=== PATIENT | female | born 2000 | race Hispanic/Latino ===

== ENCOUNTER 2019-05-08 19:48 | Emergency (ER) | payer OTHER ==
--- OUTSIDE RECORDS SUMMARY | 2019-05-08 19:50 | XMS REPORT ---
:2000 [facility] [address] [place] [address] Care Team Providers Name Role Phone Unavailable Unavailable Unavailable Problems This patient has no known problems. Allergies, Adverse Reactions, Alerts This patient has no known allergies or adverse reactions. Medications This patient has no known medications.
--- NOTE | 2019-05-08 21:45 | RAD REPORT ---
EXAM DESCRIPTION: US - OB Limited - 05/08/2019 9:39 pm CLINICAL HISTORY: Abdominal distention;Abd cramping, Early . COMPARISON: No comparisons FINDINGS: A single gestational sac is seen within the uterus. The shape of the sac is within normal limits for gestational age. Within the sac is a single pole with crown-rump length of 7.1 cm, c orrelating to estimated gestational age of 13 weeks 2 days. Estimated date of delivery is 11/11/2019. Heart rate is 157 BPM.. The placenta is not yet developed / visualized due to early gestational age. The maternal adnexa and ovaries are within normal limits. Normal Doppler blood flow was demonstrated to both ovaries. IMPRESSION: Single live early intrauterine gestation with estimated gestational age of 13 weeks 2 da ys, SONU 11/11/2019. No unusual or unexpected finding.
--- NOTE | 2019-05-08 21:45 | RAD REPORT ---
EXAM DESCRIPTION: US - Abdomen Exam Limited - 05/08/2019 9:39 pm CLINICAL HISTORY: ABD CRAMPING, COMPARISON: <Comparisons> FINDINGS: The gallbladder demonstrates no gallstones. No pericholecystic fluid or gallbladder wall t hickening. The common bile duct is normal measuring 3 mm. The liver demonstrates no findings of intrahepatic biliary dilatation. IMPRESSION: Unremarkable examination.
[2019-05-08] MEDS ORDERED: NA CHLORIDE 0.9% 2,000 ML ONE (22:09)
[2019-05-08] MEDS ORDERED: ONDANSETRON 4 MG/2 ML VIAL ONE (22:09)
[2019-05-08 22:27] LABS: Absolute Lymphocytes (CBC) 1.9 K/uL (0.7-4.9); Basophils % 0.4 % (0-1.3); Eosinophils % 0.2 % (0-4.4); Hematocrit 40.3 % (36.0-45.0); Lymphocytes % 21.9 % (15.3-44.8); Monocytes % 6.4 % (3.3-12.3); RBC Red Blood Cell Count 4.85 M/uL (3.86-4.86)
[2019-05-08 22:46] LABS: ALT/SGPT 23 U/L (12-78); AST/SGOT 16 U/L (15-37); Albumin 3.5 g/dL (3.4-5.0); Alkaline Phosphatase 68 U/L (45-117); BUN Blood Urea Nitrogen 4 mg/dL (7-18); Bicarbonate 24 mmol/L (21-32); Bilirubin Direct 0.1 mg/dL (0-0.2); Bilirubin Total 0.5 mg/dL (0.2-1.0); Glucose Level 76 mg/dL (74-106); HCG, Quantitative 93768 mIU/mL (1-3); Lipase 73 U/L (73-393); Potassium 3.8 mmol/L (3.5-5.1); Protein, Total 7.8 g/dL (6.4-8.2); Sodium Level 137 mmol/L (136-145)
--- NOTE | 2019-05-08 23:01 | ER ---
Nurse's Notes [facility] Name: Lico Driver Age: 18 yrs Sex: Female : 2000 Arrival Date: 05/08/2019 Time: 19:51 Bed 23 Private MD: Diagnosis: Vomiting;Abdominal tenderness;Urinary tract infection, site not specified Presentation: 05/08 20:22 Presenting complaint: Patient states: "I am 14 weeks and I have been vomiting jd3 a lot and pain.". Transition of care: patient was not received from another setting of care. Onset of symptoms was April 28, 2019. Risk Assessment: Do you want to hurt yourself or someone else? Patient reports no desire to harm self or others. Initial Sepsis Screen: Does the patient meet any 2 criteria? HR > 90 bpm. No. Patient's initial sepsis screen is negative. Does the patient have a suspected source of infection? No. Patient's initial sepsis screen is negative. Care prior to arrival: None. 20:22 Method Of Arrival: Ambulatory jd3 20:22 Acuity: DAINA 3 jd3 [employer]: 20:24 LMP N/A - currently . jd3 Historical: - Allergies: 20:24 No Known Allergies; jd3 - Home Meds: 20:24 Promethazine Oral [Active]; Vitamin Oral [Active]; jd3 - PMHx: 20:24 None; jd3 - PSHx: 20:24 None; jd3 - Immunization history:: Adult Immunizations up to date. - Social history:: Smoking status: Patient/guardian denies using tobacco. - Ebola Screening: : Patient negative for fever greater than or equal to 101.5 degrees Fahrenheit, and additional compatible Ebola Virus Disease symptoms. - Family history:: not pertinent. Screenin:01 Abuse screen: Denies threats or abuse. Denies injuries from another. Nutritional aj1 screening: No deficits noted. Tuberculosis screening: No symptoms or risk factors identified. 22:15 Fall Risk None identified. lp1 Assessment: 21:01 General: Appears in no apparent distress. uncomfortable, Behavior is calm, cooperative, aj1 appropriate for age. Pain: Complains of pain in suprapubic area, right inguinal area and left inguinal area. Neuro: Level of Consciousness is awake, alert, obeys commands, Oriented to person, place, time, situation. Cardiovascular: Patient's skin is warm and dry. Respiratory: Airway is patent Respiratory effort is even, unlabored, Respiratory pattern is regular, symmetrical. GI: Abdomen is non-distended, Reports nausea, vomiting, Patient currently denies diarrhea. : Denies discharge, vaginal bleeding. EENT: No signs and/or symptoms were reported regarding the EENT system. Derm: No signs and/or symptoms reported regarding the dermatologic system. Skin is pink, warm \\T\\ dry. normal. Musculoskeletal: No signs and/or symptoms reported regarding the musculoskeletal system. Circulation, motion, and sensation intact. 21:22 Reassessment: Ultrasound at bedside. aj1 22:45 Reassessment: Patient states feeling better, denies nausea, expresses feeling hungry lp1 Patient states feeling better. Patient states symptoms have improved. Vital Signs: 20:24 BP 120 / 76; Pulse 118; Resp 16 S; Temp 98.6(O); Pulse Ox 99% on R/A; Weight 68.04 kg jd3 (R); Height 5 ft. 3 in. (160.02 cm) (R); Pain 6/10; 22:04 BP 106 / 74; Pulse 87; Resp 16; Pulse Ox 100% on R/A; aj1 23:00 BP 111 / 71; Pulse 77; Resp 16; Pulse Ox 99% on R/A; Pain 2/10; lp1 20:24 Body Mass Index 26.57 (68.04 kg, 160.02 cm) jd3 ED Course: 19:51 Patient arrived in ED. am2 20:24 Triage completed. jd3 20:25 Arm band placed on. jd3 20:57 Aleyda Rae, RN is Primary Nurse. aj1 21:01 Patient has correct armband on for positive identification. Bed in low position. Call aj light in reach. 21:01 No provider procedures requiring assistance completed. aj1 21:07 Shalom Gotti MD is Attending Physician. doc 21:39 US Abdomen Limited In Process Unspecified. EDMS 21:39 US OB Limited In Process Unspecified. EDMS 21:55 Inserted saline lock: 22 gauge in right forearm, using aseptic technique. Blood jp3 collected. 21:55 Initial lab(s) drawn, by me, sent to lab. Patient maintains SpO2 saturation greater jp3 than 95% on room air. 22:01 Quantitative Hcg Sent. jp3 22: Abo/rh Typing Sent. jp3 22: Basic Metabolic Panel Sent. jp3 22: CBC with Diff Sent. jp3 22: Lipase Sent. jp3 22: LFT's Sent. jp3 22: HCG, Quantitative Sent. jp3 23:32 IV discontinued, No redness/swelling at site. Pressure dressing applied. lp1 Administered Medications: 22:03 Drug: NS 0.9% 1000 ml Route: IV; Rate: 1 bolus; Site: right antecubital; aj1 23:02 Follow up: IV Status: Completed infusion; IV Intake: 1000ml lp1 22:03 Drug: NS 0.9% 1000 ml Route: IV; Rate: 125 ml/hr; Site: right antecubital; aj1 23:18 Follow up: IV Status: IV converted to saline lock lp1 22:03 Drug: Zofran 4 mg Route: IVP; Site: right antecubital; aj1 23:02 Follow up: Response: Nausea is decreased lp1 23:15 Drug: Rocephin - (cefTRIAXone) 1 grams Route: IVPB; Infused Over: 30 mins; Site: right lp1 forearm; 23:32 Follow up: Response: No adverse reaction; IV Status: Completed infusion; IV Intake: [id number] 23:15 Drug: Macrobid 100 mg Route: PO; lp1 23:33 Follow up: Response: No adverse reaction lp1 Intake: 23:02 IV: 1000ml; Total: 1000ml. lp1 23:32 IV: 10ml; Total: 1010ml. lp1 Outcome: 23:00 Discharge ordered by . doc 23:32 Discharged to home ambulatory, with significant other. lp1 23:32 Condition: good 23:32 Discharge instructions given to patient, Instructed on discharge instructions, follow up and referral plans. medication usage, Demonstrated understanding of instructions, follow-up care, medications, Prescriptions given X 4. 23:33 Patient left the ED. lp1 Signatures: Dispatcher [employer] EDAleyda Peralta, RN RN aj1 Shalom Gotti MD MD cha Pena, Laura, RN RN lp1 Hoa Modi am2 Vitaliy Cummings RN RN jd3 Martin Ashton jp3
--- NOTE | 2019-05-08 23:01 | EDPHYS ---
Physician Documentation [facility] Name: Lico Driver Age: 18 yrs Sex: Female : 2000 Arrival Date: 05/08/2019 Time: 19:51 Bed 23 Private MD: MARCUS Physician Shalom Gotti HPI: 05/08 21:23 This 18 yrs old Female presents to ER via Ambulatory with complaints of doc Nausea/Vomiting, Abdominal Pain, 13 wks preg. 21:23 The patient presents to the emergency department with nausea, vomiting. Onset: The doc symptoms/episode began/occurred 2 day(s) ago. Possible causes: . The symptoms are aggravated by nothing. The symptoms are alleviated by nothing. Associated signs and symptoms: The patient has no apparent associated signs or symptoms. Severity of symptoms: At their worst the symptoms were mild in the emergency department the symptoms are unchanged. The patient has not experienced similar symptoms in the past. 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 jd3 Historical: - Allergies: 20:24 No Known Allergies; jd3 - Home Meds: 20:24 Promethazine Oral [Active]; Vitamin Oral [Active]; jd3 - PMHx: 20:24 None; jd3 - PSHx: 20:24 None; jd3 - Immunization history:: Adult Immunizations up to date. - Social history:: Smoking status: Patient/guardian denies using tobacco. - Ebola Screening: : Patient negative for fever greater than or equal to 101.5 degrees Fahrenheit, and additional compatible Ebola Virus Disease symptoms. - Family history:: not pertinent. ROS: 21:23 Constitutional: Negative for fever, chills, and weight loss, Eyes: Negative for injury, doc pain, redness, and discharge, ENT: Negative for injury, pain, and discharge, Neck: Negative for injury, pain, and swelling, Cardiovascular: Negative for chest pain, palpitations, and edema, Respiratory: Negative for shortness of breath, cough, wheezing, and pleuritic chest pain, Back: Negative for injury and pain, : Negative for injury, bleeding, discharge, and swelling, MS/Extremity: Negative for injury and deformity, Skin: Negative for injury, rash, and discoloration, Neuro: Negative for headache, weakness, numbness, tingling, and seizure, Psych: Negative for depression, anxiety, suicide ideation, homicidal ideation, and hallucinations, Allergy/Immunology: Negative for hives, rash, and allergies, Endocrine: Negative for neck swelling, polydipsia, polyuria, polyphagia, and marked weight changes. 21:23 Abdomen/GI: Positive for abdominal pain, nausea and vomiting, of the suprapubic area. Exam: 21:23 Constitutional: This is a well developed, well nourished patient who is awake, alert, doc and in no acute distress. Head/Face: Normocephalic, atraumatic. Eyes: Pupils equal round and reactive to light, extra-ocular motions intact. Lids and lashes normal. Conjunctiva and sclera are non-icteric and not injected. Cornea within normal limits. Periorbital areas with no swelling, redness, or edema. ENT: Nares patent. No nasal discharge, no septal abnormalities noted. Tympanic membranes are normal and external auditory canals are clear. Oropharynx with no redness, swelling, or masses, exudates, or evidence of obstruction, uvula midline. Mucous membranes moist. Neck: Trachea midline, no thyromegaly or masses palpated, and no cervical lymphadenopathy. Supple, full range of motion without nuchal rigidity, or vertebral point tenderness. No Meningismus. Chest/axilla: Normal chest wall appearance and motion. Nontender with no deformity. No lesions are appreciated. Cardiovascular: Regular rate and rhythm with a normal S1 and S2. No gallops, murmurs, or rubs. Normal PMI, no JVD. No pulse deficits. Respiratory: Lungs have equal breath sounds bilaterally, clear to auscultation and percussion. No rales, rhonchi or wheezes noted. No increased work of breathing, no retractions or nasal flaring. Back: No spinal tenderness. No costovertebral tenderness. Full range of motion. Skin: Warm, dry with normal turgor. Normal color with no rashes, no lesions, and no evidence of cellulitis. MS/ Extremity: Pulses equal, no cyanosis. Neurovascular intact. Full, normal range of motion. Neuro: Awake and alert, GCS 15, oriented to person, place, time, and situation. Cranial nerves II-XII grossly intact. Motor strength 5/5 in all extremities. Sensory grossly intact. Cerebellar exam normal. Normal gait. Psych: Awake, alert, with orientation to person, place and time. Behavior, mood, and affect are within normal limits. 21:23 Abdomen/GI: Inspection: distension, Bowel sounds: normal, Palpation: mild abdominal tenderness, in the suprapubic area, Liver: no appreciated palpable abnormalities, Hernia: not appreciated. Vital Signs: 20:24 BP 120 / 76; Pulse 118; Resp 16 S; Temp 98.6(O); Pulse Ox 99% on R/A; Weight 68.04 kg jd3 (R); Height 5 ft. 3 in. (160.02 cm) (R); Pain 6/10; 22:04 BP 106 / 74; Pulse 87; Resp 16; Pulse Ox 100% on R/A; aj1 23:00 BP 111 / 71; Pulse 77; Resp 16; Pulse Ox 99% on R/A; Pain 2/10; lp1 20:24 Body Mass Index 26.57 (68.04 kg, 160.02 cm) jd3 MDM: 21:07 Patient medically screened. [facility] 21:27 Data reviewed: vital signs, nurses notes, lab test result(s), radiologic studies, [facility] ultrasound. 05/08 21:09 Order name: Quantitative Hcg [facility] 05/08 21:09 Order name: Abo/rh Typing; Complete Time: 22:59 [facility] 05/08 21:09 Order name: Basic Metabolic Panel; Complete Time: 22:59 [facility] 05/08 21:09 Order name: CBC with Diff; Complete Time: 22:45 [facility] 05/08 21:09 Order name: LFT's; Complete Time: 22:59 [facility] 05/08 21:09 Order name: Lipase; Complete Time: 22:59 [facility] 05/08 21:09 Order name: US Abdomen Limited; Complete Time: 22:10 [facility] 05/08 21:09 Order name: US OB Limited; Complete Time: 22:10 [facility] 05/08 21:09 Order name: Urine Culture [facility] 05/08 21:10 Order name: HCG, Quantitative; Complete Time: 22:59 [facility]MS 05/08 22:59 Order name: Urine Dipstick--Ancillary (enter results) [facility] 05/08 22:59 Order name: Urine --Ancillary (enter results) [facility] 05/08 21:09 Order name: Urine Test (obtain specimen); Complete Time: 23:23 [facility] 05/08 21:09 Order name: IV Saline Lock; Complete Time: 22: [facility] 05/08 21:09 Order name: Labs collected and sent; Complete Time: 22: [facility] 05/08 21:09 Order name: NPO; Complete Time: 22: [facility] 05/08 21:09 Order name: Urine Dipstick-Ancillary (obtain specimen); Complete Time: 23:23 [facility] Administered Medications: 22:03 Drug: NS 0.9% 1000 ml Route: IV; Rate: 1 bolus; Site: right antecubital; aj1 23:02 Follow up: IV Status: Completed infusion; IV Intake: 1000ml lp1 22:03 Drug: NS 0.9% 1000 ml Route: IV; Rate: 125 ml/hr; Site: right antecubital; aj1 23:18 Follow up: IV Status: IV converted to saline lock lp1 22:03 Drug: Zofran 4 mg Route: IVP; Site: right antecubital; aj1 23:02 Follow up: Response: Nausea is decreased lp1 23:15 Drug: Rocephin - (cefTRIAXone) 1 grams Route: IVPB; Infused Over: 30 mins; Site: right lp1 forearm; 23:32 Follow up: Response: No adverse reaction; IV Status: Completed infusion; IV Intake: [id number] 23:15 Drug: Macrobid 100 mg Route: PO; lp1 23:33 Follow up: Response: No adverse reaction lp1 Disposition: 05/08/19 23:00 Discharged to Home. Impression: Vomiting, Abdominal tenderness, Urinary tract infection, site not specified. - Condition is Stable. - Discharge Instructions: Abdominal Pain, Adult, Nausea and Vomiting, Adult, Nausea and Vomiting, Adult, [id number], Urinary Tract Infection, Adult, Qfdc-yy-Hxic, Abdominal Pain, Adult, Enej-tw-Egyz, Pelvic Rest, Second Trimester of , Pmiz-[id number]. - Prescriptions for Diclegis 10- 10 mg Oral tablet,delayed release (DR/EC) - take 1 tablet by ORAL route 3 times per day and 2 tablets at bedtime; 60 tablet. Vitamin 27- 0.8 mg Oral Tablet - take 1 tablet by ORAL route once daily; 30 tablet. Zofran 4 mg Oral Tablet - take 1 tablet by ORAL route every 12 hours As needed; 20 tablet. Macrobid 100 mg Oral Capsule - take 1 capsule by ORAL route every 12 hours for 7 days; 14 capsule. - Medication Reconciliation Form, Thank You Letter, Antibiotic Education, Prescription Opioid Use form. - Follow up: Private Physician; When: 2 - 3 days; Reason: Recheck today's complaints, Continuance of care, Re-evaluation by your physician. - Problem is new. - Symptoms have improved. Signatures: Dispatcher [employer] EDAleyda Peralta RN RN aj1 Shalom Gotti MD MD cha Pena, Laura RN RN lp1 Vitaliy Cummings RN RN jd3 Corrections: (The following items were deleted from the chart) 23:33 23:00 05/08/2019 23:00 Discharged to Home. Impression: Vomiting; Abdominal tenderness; lp1 Urinary tract infection, site not specified. Condition is Stable. Discharge Instructions: Abdominal Pain, Adult, Nausea and Vomiting, Adult, Nausea and Vomiting, Adult, Feel-fn-Eoll, Abdominal Pain, Adult, Byho-ra-Xqst, Second Trimester of , Efxx-zw-Nhuk, Pelvic Rest. Prescriptions for Diclegis 10-10 mg Oral tablet,delayed release (DR/EC) - take 1 tablet by ORAL route 3 times per day and 2 tablets at bedtime; 60 tablet, Vitamin 27-0.8 mg Oral Tablet - take 1 tablet by ORAL route once daily; 30 tablet, Zofran 4 mg Oral Tablet - take 1 tablet by ORAL route every 12 hours As needed; 20 tablet. and Forms are Medication Reconciliation Form, Thank You Letter, Antibiotic Education, Prescription Opioid Use. Follow up: Private Physician; When: 2 - 3 days; Reason: Recheck today's complaints, Continuance of care, Re-evaluation by your physician. Problem is new. Symptoms have improved. doc
[2019-05-08] MEDS ORDERED: CEFTRIAXONE/SWI 1gm 0 GM/0 ML SYR ONE (23:22)
[2019-05-08] MEDS ORDERED: NITROFURAN MACRO 100 MG CAP PO ONE ×2 (23:22→23:25)
[2019-05-08] MEDS ORDERED: CEFTRIAXONE/SWI 1gm 1 GM/10 ML SYR ONE (23:26)
[2019-05-09 00:04] LABS: Urine Blood NEGATIVE (NEG); Urine Glucose NEGATIVE (NEG); Urine Protein 1+ (NEG); Urine pH 7.5 (5.0-7.0)
== END 2019-05-08 23:33 | disposition home or self-care (01) ==
LOC: ER 19:48
DX: O23.41 Unspecified infection of urinary tract in pregnancy, first trimester (principal); R10.9 Unspecified abdominal pain; Z3A.13 13 weeks gestation of pregnancy
CPT/HCPCS: 36415; 76705; 76815; 80048; 80076; 81003; 81025; 83690; 84702; 85025; 86900; 86901; 87086; 87088; 96361; 96365; 96375; 99284; J0696; J2405; J7030